=== PATIENT | male | born 1990 | race Caucasian/White ===

== ENCOUNTER 2016-11-03 08:26 | Emergency (ER) | payer MEDICAID ==
[2016-11-03] MEDS ORDERED: AMOXICILLIN 250 MG CAPSULE PO STA (10:00)
--- NOTE | 2016-11-03 10:06 | ED Physician Documentation ---
History of Present Illness - Stated complaint Stated Complaint: THROAT PX/FEVER - Chief complaint Chief Complaint: Heent - History obtained from History obtained from: Patient - Additonal information Additional information: Patient is a 26-year-old male who is otherwise healthy presents with a couple day history of myalgias sore throat low-grade fevers. Is a mild nonproductive cough there is no complaints of abdominal pain nausea vomiting constipation diarrhea or lower urinary symptoms. Review of systems: For pertinent positive and negatives in the review of systems please see the history of present illness, otherwise all other systems have been reviewed and are negative. Dragon disclaimer: Parts of this medical record were created using voice recognition technology. Because of the inherent limitations of this system, occasional same sounding word substitutions do occur and persist despite proofreading. Please read the document for context. Review of Systems Constitutional: reports: Fever Throat: reports: Sore throat PD PAST MEDICAL HISTORY - Past Medical History Past Medical History: No - Present Medications Home Medications: Ambulatory Orders Medication Instructions Recorded Confirmed Amoxicillin 875 mg PO BID #14 tablet 11/03/16 - Allergies Allergies/Adverse Reactions: Allergies Allergy/AdvReac Type Severity Reaction Status Date / Time No Known Drug Allergies Allergy Verified 11/03/16 08:42 - Social History Does the pt smoke?: No Smoking Status: Never smoker PD ED PE NORMAL - General General: Alert and oriented X 3, No acute distress - HEENT HEENT: Atraumatic, PERRL, EOMI, Other (Mildly erythematous posterior pharynx without exudate) - Neck Neck: Supple, no meningeal sign - Cardiac Cardiac: RRR, No murmur, No gallop - Respiratory Respiratory: No respiratory distress, Clear bilaterally - Abdomen Abdomen: Normal bowel sounds - Derm Derm: Normal color, Warm and dry - Extremities Extremities: No deformity, No tenderness to palpate, Normal ROM s pain Results - Vitals Vitals: Vital Signs - 24 hr 11/03/16 08:41 Temperature 36.6 C Heart Rate 68 Respiratory 18 Rate Blood Pressure 112/62 O2 Saturation 99 Oxygen O2 Source Room air PD MEDICAL DECISION MAKING - ED course Complexity details: reviewed old records, reviewed results, re-evaluated patient ED course: Appearing young man with possible streptococcal pharyngitis versus viral. Etiologies were discussed with him. He has family coming to visit was exposed to strep so we will initiate antibiotic treatment. Disposition: To home Clinical impression: 1. Pharyngitis, bacterial versus viral. Patient requests treatment Departure - Departure Disposition: Home, Self Care Clinical Impression: Pharyngitis Qualifiers: Pharyngitis/tonsillitis etiology: unspecified etiology Qualified Code(s): J02.9 - Acute pharyngitis, unspecified Condition: Good Instructions: ED Strep Pharyngitis Poss Prescriptions: Amoxicillin 875 mg PO BID #14 tablet
[2016-11-03] MEDS ORDERED: AMOXICILLIN 250 MG CAPSULE PO ONE (10:24)
[2016-11-03 10:26] VITALS: BP 107/65
== END 2016-11-03 10:24 | disposition home or self-care (01) ==
LOC: ED 08:26
DX: J02.9 Acute pharyngitis, unspecified (principal)
CPT/HCPCS: 99283; A9270